=== PATIENT | female | born 1965 | race American Indian/Alaskan Native ===

== ENCOUNTER 2018-07-30 19:46 | Emergency (ER) | payer SELFPAY ==
[2018-07-30] MEDS ORDERED: NORCO 5/325 PO STA (22:00)
--- NOTE | 2018-07-30 22:13 | Emergency Department Report ---
ED Lower Extremity HPI - General Chief Complaint: Extremity Injury, Lower Stated Complaint: FELL/RT KNEE PAIN Time Seen by Provider: 07/30/18 21:59 Source: patient Mode of arrival: Ambulatory Limitations: No Limitations - History of Present Illness Initial Comments: was at [employer] and slipped on the wet floor and and hit knee on floor. right knee took most of fall. no head trauma. no loc. Denies neck and back pain. MD Complaint: knee injury -: Sudden Injury: Knee: Right Type of Injury: blunt Place: home Severity: mild Improves With: nothing Worsens With: nothing Context: direct blow - Related Data Previous Rx's Medication Instructions Recorded Last Taken Type traMADol [Ultram] 50 mg PO Q6HR PRN #20 tablet 07/31/18 Unknown Rx Allergies Allergy/AdvReac Type Severity Reaction Status Date / Time No Known Allergies Allergy Verified 06/06/14 02:33 ED Review of Systems ROS: Stated complaint: FELL/RT KNEE PAIN Other details as noted in HPI Constitutional: denies: chills, fever Eyes: denies: eye pain, eye discharge, vision change ENT: denies: ear pain, throat pain Respiratory: denies: cough, shortness of breath, wheezing Cardiovascular: denies: chest pain, palpitations Endocrine: no symptoms reported Gastrointestinal: denies: abdominal pain, nausea, diarrhea Genitourinary: denies: urgency, dysuria, discharge Musculoskeletal: joint swelling, arthralgia. denies: back pain Skin: denies: rash, lesions Neurological: denies: headache, weakness, paresthesias Psychiatric: denies: anxiety, depression Hematological/Lymphatic: denies: easy bleeding, easy bruising ED Past Medical Hx - Past Medical History Additional medical history: Obesity - Surgical History Past Surgical History?: No - Social History Smoking Status: Never Smoker Substance Use Type: None - Medications Home Medications: Home Medications Medication Instructions Recorded Confirmed Last Taken Type traMADol [Ultram] 50 mg PO Q6HR PRN #20 tablet 07/31/18 Unknown Rx ED Physical Exam - General Limitations: No Limitations General appearance: alert, in no apparent distress - Head Head exam: Present: atraumatic, normocephalic - Eye Eye exam: Present: normal appearance - ENT ENT exam: Present: mucous membranes moist - Neck Neck exam: Present: normal inspection - Respiratory Respiratory exam: Present: normal lung sounds bilaterally. Absent: respiratory distress, wheezes, rales - Cardiovascular Cardiovascular Exam: Present: regular rate, normal rhythm. Absent: systolic murmur, diastolic murmur, rubs, gallop - GI/Abdominal GI/Abdominal exam: Present: soft, normal bowel sounds - Extremities Exam Extremities exam: Present: normal inspection - Back Exam Back exam: Present: normal inspection - Neurological Exam Neurological exam: Present: alert, oriented X3 - Psychiatric Psychiatric exam: Present: normal affect, normal mood - Skin Skin exam: Present: warm, dry, intact, normal color. Absent: rash ED Course Vital Signs 07/30/18 20:00 Temperature 97.9 F Pulse Rate 54 L Respiratory 18 Rate Blood Pressure 151/70 O2 Sat by Pulse 99 Oximetry ED Lower Extremity MDM - Radiology Data Radiology results: report reviewed Mild osteoarthritis. no acute processes Critical care attestation.: If time is entered above; I have spent that time in minutes in the direct care of this critically ill patient, excluding procedure time. ED Disposition Clinical Impression: Contusion of right knee Disposition: DC-01 TO HOME OR SELFCARE Is pt being admited?: No Does the pt Need Aspirin: No Condition: Stable Instructions: Knee Pain (ED), RICE Therapy (ED), Ice Pack Application (ED), Contusion in Adults (ED) Prescriptions: traMADol [Ultram] 50 mg PO Q6HR PRN #20 tablet PRN Reason: Pain Referrals: PRIMARY CARE, [Primary Care Provider] - 3-5 Days REMA GREEN MD [Staff Physician] - 3-5 Days [facility] [Provider Group] - 3-5 Days
--- NOTE | 2018-07-30 22:18 | XRay Report ---
FINAL REPORT PROCEDURE: Right knee. TECHNIQUE: Three views. HISTORY: right knee injury COMPARISON: No prior studies are available for comparison. FINDINGS: The bones appear intact without fracture or dislocation. There is mild narrowing of the knee joint. T here are small osteophytes. The soft tissues are unremarkable. There is no evidence of a knee effusio n. IMPRESSION: Mild osteoarthritis.
[2018-07-31 00:25] VITALS: BP 135/72
== END 2018-07-31 00:25 | disposition home or self-care (01) ==
LOC: ED 19:46
DX: S80.01XA Contusion of right knee, initial encounter (principal); E66.9 Obesity, unspecified; Z68.41 Body mass index [BMI] 40.0-44.9, adult; W01.198A Fall on same level from slipping, tripping and stumbling with subsequent striking against other object, initial encounter; Y93.89 Activity, other specified; Y92.098 Other place in other non-institutional residence as the place of occurrence of the external cause; Y99.8 Other external cause status
CPT/HCPCS: 99283

== ENCOUNTER 2019-04-15 08:19 | Emergency (ER) | payer SELFPAY ==
[2019-04-15 08:25] VITALS: BP 139/82
--- NOTE | 2019-04-15 09:57 | Emergency Department Report ---
- General Chief complaint: Skin Rash Stated complaint: RASH Time Seen by Provider: 04/15/19 09:31 Source: patient Mode of arrival: Ambulatory Limitations: No Limitations - History of Present Illness Initial comments: 53-year-old female with no significant past medical history presents the hospital complaining of rash to upper extremities and feet 3 days. Symptoms started after using Dove scented soap. She denies shortness of breath, throat swelling, or fever. Rash is pruritic. Taking Benadryl intermittently for relief. - Related Data Previous Rx's Medication Instructions Recorded Last Taken Type traMADol [Ultram] 50 mg PO Q6HR PRN #20 tablet 07/31/18 Unknown Rx diphenhydrAMINE [Benadryl CAP] 25 mg PO Q6HR PRN #20 capsule 04/15/19 Unknown Rx predniSONE [Deltasone] 40 mg PO QDAY 5 Days tab 04/15/19 Unknown Rx Allergies Allergy/AdvReac Type Severity Reaction Status Date / Time No Known Allergies Allergy Verified 06/06/14 02:33 Abscess Boil HPI - HPI Chief Complaint: Skin Rash Stated Complaint: RASH Time Seen by Provider: 04/15/19 09:31 Home Medications: Previous Rx's Medication Instructions Recorded Last Taken Type traMADol [Ultram] 50 mg PO Q6HR PRN #20 tablet 07/31/18 Unknown Rx diphenhydrAMINE [Benadryl CAP] 25 mg PO Q6HR PRN #20 capsule 04/15/19 Unknown Rx predniSONE [Deltasone] 40 mg PO QDAY 5 Days tab 04/15/19 Unknown Rx Allergies/Adverse Reactions: Allergies Allergy/AdvReac Type Severity Reaction Status Date / Time No Known Allergies Allergy Verified 06/06/14 02:33 ED Review of Systems ROS: Stated complaint: RASH Other details as noted in HPI Comment: All other systems reviewed and negative ED Past Medical Hx - Past Medical History Additional medical history: Obesity - Social History Smoking Status: Never Smoker Substance Use Type: None - Medications Home Medications: Home Medications Medication Instructions Recorded Confirmed Last Taken Type traMADol [Ultram] 50 mg PO Q6HR PRN #20 tablet 07/31/18 Unknown Rx diphenhydrAMINE [Benadryl CAP] 25 mg PO Q6HR PRN #20 capsule 04/15/19 Unknown Rx predniSONE [Deltasone] 40 mg PO QDAY 5 Days tab 04/15/19 Unknown Rx ED Physical Exam - General Limitations: No Limitations - Other Other exam information: Gen.: No acute distress Head: Atraumatic Eyes: Normal appearance ENT: Moist mucous membranes, no tongue swelling, posterior pharyngeal swelling, or oral lesions. Neck: Normal appearance, no posterior midline tenderness, no meningismus Chest: Clear to auscultation bilaterally Cardiovascular: Regular rate and rhythm Abdomen: Normal appearance, soft, nontender, no rebound or guarding, normal bowel sounds Back: Normal appearance, nontender Extremity: Full range of motion, normal appearance Neuro: Alert and oriented 3, clear speech, no focal motor or sensory deficit Psychiatric: Appropriate Skin: Pruritic papular rash to upper extremities and dorsum of foot. Does not involve the palms or soles. ED Course Vital Signs 04/15/19 08:23 Temperature 97.8 F Pulse Rate 71 Respiratory 18 Rate Blood Pressure 139/82 O2 Sat by Pulse 99 Oximetry ED Medical Decision Making - Medical Decision Making Suspect allergy to new exposure to Dove scented soap. Patient instructed to discontinue using the soap. Will be provided medications for allergic reaction - Differential Diagnosis allergic reaction, dermatitis Critical Care Time: No Critical care attestation.: If time is entered above; I have spent that time in minutes in the direct care of this critically ill patient, excluding procedure time. ED Disposition Clinical Impression: Pruritic rash, Allergic reaction Disposition: DC-01 TO HOME OR SELFCARE Is pt being admited?: No Does the pt Need Aspirin: No Condition: Stable Instructions: Acute Rash (ED), Allergies (ED) Additional Instructions: Take the medication as prescribed. Follow-up with your doctor or with the doctor/clinic provided. Return if symptoms worsen as indicated by your discharge instructions. Prescriptions: diphenhydrAMINE [Benadryl CAP] 25 mg PO Q6HR PRN #20 capsule PRN Reason: Itching predniSONE [Deltasone] 40 mg PO QDAY 5 Days tab Referrals: SOFYA MILLER MD [Primary Care Provider] - 3-[address] [facility] [Provider Group] - 3-5 Days DAMIEN ECHEVARRIA MD [Staff Physician] - 3-5 Days Time of Disposition: 09:57
== END 2019-04-15 10:06 | disposition home or self-care (01) ==
LOC: ED 08:19
DX: T78.40XA Allergy, unspecified, initial encounter (principal); X58.XXXA Exposure to other specified factors, initial encounter

== ENCOUNTER 2020-12-28 13:15 | Emergency (ER) | payer SELFPAY ==
[2020-12-28 14:08] VITALS: BP 159/76
[2020-12-28] MEDS ORDERED: TETANUS,DIPH,PERTUSS(ACELL) VACCINE 0.5 ML SYRINGE IM ONE (14:34)
--- NOTE | 2020-12-28 16:02 | Emergency Department Report ---
- General Chief complaint: Skin/Abscess/Foreign Body Stated complaint: BUG BITE Time Seen by Provider: 12/28/20 14:29 Source: patient Mode of arrival: Ambulatory Limitations: No Limitations - History of Present Illness Initial comments: This is a 55-year-old female nontoxic, well nourished in appearance, no acute signs of distress presents to the ED with c/o of redness and pain with mild swelling and purulent drainage to right lower leg x2 days. Patient stated is unsure if she was bitten by something. Patient denies any fever, chills, nausea, vomiting, chest pain, shortness of breath, headache or stiff neck. Patient denies being up-to-date with tetanus. Patient denies any allergies or significant past medical history. MD complaint: insect bite/sting, abscess/boil -: days(s) Tetanus Up to Date: no Location: [facility] Severity: mild Severity scale (0 -10): 8 Quality: aching Consistency: constant Improves with: immobilization Worsens with: palpation Context: none Associated symptoms: denies other symptoms Treatments Prior to Arrival: none - Related Data Previous Rx's Medication Instructions Recorded Last Taken Type traMADoL [Ultram] 50 mg PO Q6HR PRN #20 tablet 07/31/18 Unknown Rx diphenhydrAMINE [Benadryl CAP] 25 mg PO Q6HR PRN #20 capsule 04/15/19 Unknown Rx predniSONE [Deltasone] 40 mg PO QDAY 5 Days tab 04/15/19 Unknown Rx Clindamycin [Clindamycin CAP] 300 mg PO Q6H #28 capsule 12/28/20 Unknown Rx Allergies Allergy/AdvReac Type Severity Reaction Status Date / Time No Known Allergies Allergy Verified 12/28/20 14:07 Abscess Boil HPI - HPI Chief Complaint: Skin/Abscess/Foreign Body Stated Complaint: BUG BITE Time Seen by Provider: 12/28/20 14:29 Home Medications: Previous Rx's Medication Instructions Recorded Last Taken Type traMADoL [Ultram] 50 mg PO Q6HR PRN #20 tablet 07/31/18 Unknown Rx diphenhydrAMINE [Benadryl CAP] 25 mg PO Q6HR PRN #20 capsule 04/15/19 Unknown Rx predniSONE [Deltasone] 40 mg PO QDAY 5 Days tab 04/15/19 Unknown Rx Clindamycin [Clindamycin CAP] 300 mg PO Q6H #28 capsule 12/28/20 Unknown Rx Allergies/Adverse Reactions: Allergies Allergy/AdvReac Type Severity Reaction Status Date / Time No Known Allergies Allergy Verified 12/28/20 14:07 ED Review of Systems ROS: Stated complaint: BUG BITE Other details as noted in HPI Comment: All other systems reviewed and negative Constitutional: denies: chills, fever Eyes: denies: eye pain, eye discharge, vision change ENT: denies: ear pain, throat pain Respiratory: denies: cough, shortness of breath, wheezing Cardiovascular: denies: chest pain, palpitations Endocrine: no symptoms reported Gastrointestinal: denies: abdominal pain, nausea, diarrhea Genitourinary: denies: urgency, dysuria, discharge Musculoskeletal: denies: back pain, joint swelling, arthralgia Skin: denies: rash, lesions Neurological: denies: headache, weakness, paresthesias Psychiatric: denies: anxiety, depression Hematological/Lymphatic: denies: easy bleeding, easy bruising ED Past Medical Hx - Past Medical History Additional medical history: Obesity - Social History Smoking Status: Never Smoker Substance Use Type: None - Medications Home Medications: Home Medications Medication Instructions Recorded Confirmed Last Taken Type traMADoL [Ultram] 50 mg PO Q6HR PRN #20 tablet 07/31/18 Unknown Rx diphenhydrAMINE [Benadryl CAP] 25 mg PO Q6HR PRN #20 capsule 04/15/19 Unknown Rx predniSONE [Deltasone] 40 mg PO QDAY 5 Days tab 04/15/19 Unknown Rx Clindamycin [Clindamycin CAP] 300 mg PO Q6H #28 capsule 12/28/20 Unknown Rx ED Physical Exam - General Limitations: No Limitations General appearance: alert, in no apparent distress - Head Head exam: Present: atraumatic, normocephalic - Eye Eye exam: Present: normal appearance - Neck Neck exam: Present: normal inspection, full ROM. Absent: lymphadenopathy - Respiratory Respiratory exam: Absent: respiratory distress - Cardiovascular Cardiovascular Exam: Present: regular rate - Extremities Exam Extremities exam: Present: normal inspection, full ROM, tenderness, normal capillary refill. Absent: joint swelling, calf tenderness - Expanded Lower Extremity Exam Left Hip exam: Present: normal inspection, full ROM. Absent: tenderness, swelling Upper Leg exam: Present: normal inspection, full ROM. Absent: tenderness, swelling Knee exam: Present: normal inspection, full ROM. Absent: tenderness, swelling Lower Leg exam: Present: full ROM, tenderness, swelling (With some purulent drainage). Absent: abrasion, laceration, ecchymosis, deformity, crepidus, dislocation, erythema, palpable cord, Karen's sign Ankle exam: Present: normal inspection. Absent: full ROM, tenderness Foot/Toe exam: Present: normal inspection, full ROM. Absent: tenderness, swelling Neuro vascular tendon exam: Present: no vascular compromise Gait: Positive: observed and normal 1 - 2 cm x 3 cm cellulitis with punctate noted and some purulent serosanguineous drainage noted. No induration or fluctuance. - Back Exam Back exam: Present: normal inspection, full ROM - Neurological Exam Neurological exam: Present: alert, oriented X3, normal gait - Psychiatric Psychiatric exam: Present: normal affect, normal mood - Skin Skin exam: Present: warm, dry, intact, normal color. Absent: rash ED Course Vital Signs 12/28/20 14:04 Temperature 98.4 F Pulse Rate 60 Respiratory 18 Rate Blood Pressure 159/76 O2 Sat by Pulse 100 Oximetry - Reevaluation(s) Reevaluation #1: 12/28/20 16:00 Patient is speaking in full sentences with no signs of distress noted. ED Medical Decision Making - Medical Decision Making This is a 55-year-old female that presents with cellulitis with draining open wo und from the punctate area. Patient is stable and was examined by me. There is no induration, fluctuance. The area has been outlined with a permanent marker and patient was instructed to observe symptoms of increased redness or swelling and to return to the ER if this does occur. I will discharge patient with clindamycin. Patient did receive a tetanus booster in the ER. Patient was referred to Follow-up with a primary care doctor in 3-5 days or if symptoms worsen and continue return to emergency room as soon as possible. At time of discharge, the patient does not seem toxic or ill in appearance. No acute signs of distress noted. Patient agrees to discharge treatment plan of care. No further questions noted by the patient. Critical care attestation.: If time is entered above; I have spent that time in minutes in the direct care of this critically ill patient, excluding procedure time. ED Disposition Clinical Impression: Cellulitis Qualifiers: Site of cellulitis: extremity Site of cellulitis of extremity: lower extremity Laterality: right Qualified Code(s): L03.115 - Cellulitis of right lower limb Disposition: - TO HOME OR SELFCARE Is pt being admited?: No Does the pt Need Aspirin: No Condition: Stable Instructions: Cellulitis, Adult, [id number] Additional Instructions: Follow-up with a primary care doctor in 3-5 days or if symptoms worsen and continue return to emergency room as soon as possible. Prescriptions: Clindamycin [Clindamycin CAP] 300 mg PO Q6H #28 capsule Referrals: PRIMARY CAREMD [Primary Care Provider] - 3-5 Days DAMIEN ECHEVARRIA MD [Staff Physician] - 3-5 Days Forms: Work/School Release Form(ED) Time of Disposition: 16:18
== END 2020-12-28 18:47 | disposition home or self-care (01) ==
LOC: ED 13:15
DX: L03.115 Cellulitis of right lower limb (principal); E66.8 Other obesity; Z98.890 Other specified postprocedural states; Z79.899 Other long term (current) drug therapy
CPT/HCPCS: 90471; 90715; 99282

== ENCOUNTER 2021-01-30 06:54 | Emergency (ER) | payer SELFPAY ==
[2021-01-30 08:11] VITALS: BP 145/60
--- NOTE | 2021-01-30 10:49 | Emergency Department Report ---
ED General Adult HPI - General Chief complaint: Skin Rash Stated complaint: BROKE OUT ON LEFT/RIGHT ARM Time Seen by Provider: 01/30/21 10:30 Source: patient Mode of arrival: Ambulatory Limitations: No Limitations - History of Present Illness Initial comments: 55-year-old female patient presents to the emergency department with complaints of a pruritic rash to her upper extremities starting 2 days ago. No new foods, medications, or environmental/chemical exposures. No known sick contacts. No recent travel. No history of similar symptoms. No known allergies. Patient took Benadryl with limited relief. Denies headache, neck stiffness, mental status changes, seizure, syncope, shortness of breath. Denies all other complaints at this time. - Related Data Previous Rx's Medication Instructions Recorded Last Taken Type traMADoL [Ultram] 50 mg PO Q6HR PRN #20 tablet 07/31/18 Unknown Rx diphenhydrAMINE [Benadryl CAP] 25 mg PO Q6HR PRN #20 capsule 04/15/19 Unknown Rx predniSONE [Deltasone] 40 mg PO QDAY 5 Days tab 04/15/19 Unknown Rx Clindamycin [Clindamycin CAP] 300 mg PO Q6H #28 capsule 12/28/20 Unknown Rx Hydrocortisone 1% [Hydrocortisone 1 applicatio TP TID #1 tube 01/30/21 Unknown Rx 1% CREAM] Hydroxyzine HCl [hydrOXYzine] 25 mg PO TID #20 tablet 01/30/21 Unknown Rx Allergies Allergy/AdvReac Type Severity Reaction Status Date / Time No Known Allergies Allergy Verified 12/28/20 14:07 ED Review of Systems ROS: Stated complaint: BROKE OUT ON LEFT/RIGHT ARM Other details as noted in HPI Other: GENERAL: Negative for fever. CARDIOVASCULAR: Negative for chest pain. PULMONARY: Negative for shortness of breath. GASTROINTESTINAL: Negative for abdominal pain. MUSCULOSKELETAL: Negative for back pain. NEUROLOGICAL: Negative for headache. INTEGUMENTARY: Positive for rash. ED Past Medical Hx - Past Medical History Previous Medical History?: No Additional medical history: Obesity - Surgical History Past Surgical History?: No - Social History Smoking Status: Never Smoker Substance Use Type: None - Medications Home Medications: Home Medications Medication Instructions Recorded Confirmed Last Taken Type traMADoL [Ultram] 50 mg PO Q6HR PRN #20 tablet 07/31/18 Unknown Rx diphenhydrAMINE [Benadryl CAP] 25 mg PO Q6HR PRN #20 capsule 04/15/19 Unknown Rx predniSONE [Deltasone] 40 mg PO QDAY 5 Days tab 04/15/19 Unknown Rx Clindamycin [Clindamycin CAP] 300 mg PO Q6H #28 capsule 12/28/20 Unknown Rx Hydrocortisone 1% [Hydrocortisone 1 applicatio TP TID #1 tube 01/30/21 Unknown Rx 1% CREAM] Hydroxyzine HCl [hydrOXYzine] 25 mg PO TID #20 tablet 01/30/21 Unknown Rx ED Physical Exam - General Limitations: No Limitations - Other Other exam information: General: Awake, appropriately interactive, no acute distress. Neck: Supple. Full range of motion intact. Cardiovascular: Normal peripheral perfusion. Pulmonary: No respiratory distress. Patient is speaking normally without use of accessory muscles. Skin: Dry, macerated, pruritic rash noted to the upper extremities, most promi nent along the extensor surfaces of the elbows. Neurological: No facial asymmetry. Speech is clear. Follows commands. Patient is alert and oriented. Musculoskeletal: Moves all four extremities spontaneously with normal range of motion. Psych: Cooperative. Appropriate mood and affect. ED Course Vital Signs 01/30/21 01/30/21 08:10 11:00 Temperature 98.2 F Pulse Rate 51 L 51 L Respiratory 16 18 Rate Blood Pressure 145/60 O2 Sat by Pulse 100 100 Oximetry ED Medical Decision Making - Medical Decision Making Differential diagnosis including but not limited to: psoriasis, eczema, contact dermatitis, tinea corporis Patient presents to the emergency department with signs/symptoms suggestive of eczema. She will be discharged home with appropriate symptomatic treatment and referred to primary care provider for close outpatient follow-up. The patient is afebrile and hemodynamically stable. The patient is alert and well appearing. There are no petichiae or purpura, no mucous membrane lesions, and no bullae. The patient is without findings concerning for worrisome systemic illness requiring further treatment, additional testing, admission, or specialist consultation at this time. Additional testing is not indicated at this time, but should be considered if symptoms worsen or recur. Discussed findings, presumptive diagnosis, need for follow-up and specific signs/symptoms that should prompt immediate return to the emergency department. Instructions were explained in detail to the patient in addition to giving written discharge information. Patient expressed understanding and was given the opportunity to ask questions, all of which were satisfactorily answered prior to discharge home. Critical care attestation.: If time is entered above; I have spent that time in minutes in the direct care of this critically ill patient, excluding procedure time. ED Disposition Clinical Impression: Rash and nonspecific skin eruption Disposition: TO HOME OR SELFCARE Is pt being admited?: No Does the pt Need Aspirin: No Condition: Stable Instructions: Rash, Adult, [id number] Additional Instructions: Take Hydroxyzine as needed for itching. Apply Hydrocortisone cream to affected area as directed. Keep medication in the refrigerator for added symptomatic relief. Follow-up with primary care provider this week. Call today to schedule an appointment. See referral information below. Return to the emergency department immediately for new or worsening symptoms. Prescriptions: Hydrocortisone 1% [Hydrocortisone 1% CREAM] 1 applicatio TP TID #1 tube Hydroxyzine HCl [hydrOXYzine] 25 mg PO TID #20 tablet Referrals: DAMIEN ECHEVARRIA MD [Staff Physician] - 3-5 Days [facility] [Provider Group] - 3-5 Days Time of Disposition: 10:49
== END 2021-01-30 11:01 | disposition home or self-care (01) ==
LOC: ED 06:54
DX: R21 Rash and other nonspecific skin eruption (principal); E66.9 Obesity, unspecified; Z68.36 Body mass index [BMI] 36.0-36.9, adult; Z79.899 Other long term (current) drug therapy
CPT/HCPCS: 99282